=== PATIENT | male | born 1950 | race Caucasian/White ===

== ENCOUNTER 2019-01-06 11:10 | Emergency (ER) | payer OTHER, MEDICARE ==
[~2019-01-06] VITALS: Ht 160 cm; Wt 90.3 kg
[2019-01-06 11:14] VITALS: BP 145/81
--- NOTE | 2019-01-06 11:38 | NUR ---
Patient discharged in custody in stable condition. Written and verbal after care instructions given. Patient verbalizes understanding of instruction.
== END 2019-01-06 11:37 ==
LOC: ER 11:11
DX: Z02.89 Encounter for other administrative examinations (principal); I10 Essential (primary) hypertension; J44.9 Chronic obstructive pulmonary disease, unspecified; E11.9 Type 2 diabetes mellitus without complications; F43.10 Post-traumatic stress disorder, unspecified; M79.7 Fibromyalgia
CPT/HCPCS: 82962-TC

== ENCOUNTER 2023-01-25 01:56 | Inpatient (IN) | payer MEDICARE, OTHER ==
[~2023-01-25] VITALS: Ht 162.6 cm; Wt 81.6 kg
[2023-01-25] MEDS ORDERED: VANCOMYCIN 1 GM in IV D5W 250 ML IV ONE (02:30)
[2023-01-25] MEDS ORDERED: ACETAMINOPHEN 325 MG TABLET PO ONE (02:30)
[2023-01-25] MEDS ORDERED: CEFTRIAXONE 1GM BAG (ER ONLY) 50 ML IV ONE ×2 (02:30→03:04)
[2023-01-25] MEDS ORDERED: ACETAMINOPHEN 325 MG TABLET ONE (02:30)
[2023-01-25 03:16] LABS: BASOPHILS % (AUTO) 0.8 % (0.0-2.0); EOSINOPHILS # (AUTO) 0.1 K/uL (0.0-0.7); EOSINOPHILS % (AUTO) 1.2 % (0.0-6.0); HEMATOCRIT 38 % (39-51); HEMOGLOBIN 12.5 g/dL (13.5-17.5); LYMPHOCYTES % (AUTO) 16.2 % (20.0-44.0); MEAN CORPUSCULAR HEMOGLOBIN 32 PG (26.0-33.0); MEAN CORPUSCULAR HGB CONC 33 g/dl (31.0-36.0); MEAN CORPUSCULAR VOLUME 96 fL (80-96); MONOCYTES # (AUTO) 1.1 K/uL (0.1-1.30); MONOCYTES % (AUTO) 16.8 % (2.0-12.0); NEUTROPHILS # (AUTO) 4.1 K/uL (1.8-8.9); PLATELET COUNT (AUTO) 178 K/uL (150-450); RED BLOOD CELL COUNT(AUTO) 3.92 MIL/uL (4.5-6.0); RED CELL DISTRIBUTION WIDTH 13.4 % (11.5-15.0); WHITE BLOOD COUNT (AUTO) 6.3 K/uL (4.3-11.0)
[2023-01-25 03:18] LABS: APPEARANCE,URINE CLEAR (CLEAR); BILIRUBIN,URINE NEGATIVE (NEGATIVE); BLOOD, URINE NEGATIVE Ery/uL (NEGATIVE); COLOR,URINE YELLOW (YELLOW); KETONES,URINE TRACE mg/dL (NEGATIVE); LEUKOCYTE ESTERASE ,URINE NEGATIVE (NEGATIVE); NITRITE, URINE NEGATIVE (NEGATIVE); PH,URINE 5.5 (5.0-8.0); PROTEIN,URINE NEGATIVE (NEGATIVE); UGLUCOSE NEGATIVE (NEGATIVE)
[2023-01-25] MEDS ORDERED: VANCOMYCIN 1 GM /D5W 250 ML PB IV ONE (03:19)
[2023-01-25 03:26] LABS: INR 1.06 (0.91-1.10); PARTIAL THROMBOPLASTIN TIME 29.7 SEC (24.3-34.3); PROTHROMBIN TIME 11.2 SECS (9.2-11.1)
[2023-01-25 03:34] LABS: LACTIC ACID 1.1 mmol/L (0.4-2.0)
[2023-01-25 03:37] LABS: ADD URINE CULTURE NO; BACTERIA,URINE None seen /HPF (None Seen); CALCIUM OXALATE CRYSTALS,UR Moderate /HPF (None Seen); RBC,URINE NONE SEEN /HPF (0-2); SQUAMOUS EPITHELIAL CELL,UR None Seen /HPF (None Seen); WBC,URINE NONE SEEN /HPF (0-3)
[2023-01-25 03:39] LABS: CALCIUM, SERUM 9.4 mg/dL (8.5-10.1); CARBON DIOXIDE 30 mmol/L (21-32); CHLORIDE 103 mmol/L (98-107); CREATININE 1.1 mg/dL (0.6-1.3); GLUCOSE 108 mg/dL (74-106); POTASSIUM 4.6 mmol/L (3.5-5.1); SODIUM SERUM 140 mmol/L (136-145); UREA NITROGEN, BLOOD 29 mg/dL (7-18)
[2023-01-25 03:42] LABS: ALANINE AMINOTRANSFERASE 54 U/L (12-78); ALBUMIN 3.5 g/dL (3.4-5.0); ALKALINE PHOSPHATASE 87 U/L (46-116); ASPARTATE AMINOTRANSFERASE 48 U/L (15-37); BILIRUBIN,DIRECT 0.2 mg/dL (0.0-0.2); BILIRUBIN,TOTAL 0.7 mg/dL (0.2-1.0); TOTAL PROTEIN, SERUM 7.2 g/dL (6.4-8.2)
[2023-01-25 03:55] LABS: LYMPHOCYTES % (MANUAL) 12 % (16-48); MONOCYTES % (MANUAL) 17 % (0-11.0); NEUTROPHILS % (MANUAL) 71 (42-76); PLATELET ESTIMATE ADEQUATE
[2023-01-25] MEDS ORDERED: TAMS-12 PO (04:40)
[2023-01-25] MEDS ORDERED: LOSA50TA39 PO (04:40)
[2023-01-25] MEDS ORDERED: OMEP20CA15 PO (04:40)
[2023-01-25] MEDS ORDERED: ZOLP5TAB8 PO (04:40)
[2023-01-25] MEDS ORDERED: EZET10TA16 PO (04:40)
[2023-01-25] MEDS ORDERED: AMIO200T5 PO (04:40)
[2023-01-25] MEDS ORDERED: ATOR40TA PO (04:40)
[2023-01-25] MEDS ORDERED: RIVA10TA PO (04:40)
[2023-01-25] MEDS ORDERED: FURO20TA4 PO (04:40)
[2023-01-25] MEDS ORDERED: LORA10TA7 PO (04:40)
[2023-01-25] MEDS ORDERED: CHOL500062 PO (04:40)
[2023-01-25] MEDS ORDERED: Z GUARD REMEDY 4 OZ OINT TP PRN (06:00)
[2023-01-25] MEDS ORDERED: ONDANSETRON HCL/PF 4 MG/2 ML VIAL IVP PRN (06:00)
[2023-01-25] MEDS ORDERED: ACETAMINOPHEN 325 MG TABLET PO PRN (06:00)
[2023-01-25] MEDS: PANTOPRAZOLE 40 MG TABLET.DR PO SCH (07:56)
[2023-01-25 08:00] VITALS: BP 136/70; TEMP 98.6; O2SAT 94
[2023-01-25] MEDS ORDERED: VANCOMYCIN 0.75 GM in IV D5W 250 ML IV ONE (08:00)
[2023-01-25] MEDS ORDERED: ALBU18HF2 IH (08:07)
[2023-01-25] MEDS: FUROSEMIDE 20 MG TABLET PO SCH (08:35)
[2023-01-25] MEDS: EZETIMIBE 10 MG TABLET PO SCH (08:35)
[2023-01-25] MEDS: RIVAROXABAN 10 MG TABLET PO SCH (08:37)
[2023-01-25] MEDS: LORATADINE 10 MG TABLET PO SCH (08:37)
[2023-01-25] MEDS: TAMSULOSIN 0.4 MG CAP.SR.24H PO SCH (08:37)
[2023-01-25] MEDS: LOSARTAN POTASSIUM 50 MG TABLET PO SCH (08:59)
[2023-01-25] MEDS: AMIODARONE HCL 200 MG TABLET PO SCH ×2 (08:59→16:17)
[2023-01-25] MEDS: NEOMY SULF/BACITRAC ZN/POLY 15 GM TUBE TP SCH (12:06)
[2023-01-25] MEDS ORDERED: DEXTROSE 50%-WATER 50 ML DISP.SYRIN IV PRN (12:30)
[2023-01-25] MEDS: DULOXETINE HCL 30 MG CAPSULE.DR PO SCH (14:54)
[2023-01-25 16:00] VITALS: BP 137/65; TEMP 97.9; O2SAT 94
[2023-01-25] MEDS: INSULIN REGULAR, HUMAN 100 UNIT/ML 3 ML VIAL SQ PRN (16:53)
[2023-01-25] MEDS: BLOOD SUGAR DIAGNOSTIC 1 EACH STRIP VI SCH ×2 (16:53→21:10)
[2023-01-25] MEDS ORDERED: ZOLPIDEM TARTRATE 5 MG TABLET PO SCH (18:00)
[2023-01-25 20:00] VITALS: BP 148/66; TEMP 98.6; O2SAT 98
[2023-01-25] MEDS: HYDROCODONE/APAP 10/325MG TABLET PO PRN (20:48)
[2023-01-25] MEDS: ATORVASTATIN 40 MG TABLET PO SCH (21:02)
[2023-01-25] MEDS: *INSULIN REGULAR(HUMULIN R)HUM 100 UNIT/ML VIAL SQ PRN (21:10)
[2023-01-25] MEDS ORDERED: PANTOPRAZOLE 40 MG TABLET.DR PO SCH (22:00)
[2023-01-26] MEDS ORDERED: SILVER NITRATE APPLICATOR 1 EA BOX TP ONE (05:00)
[2023-01-26 05:55] LABS: BASOPHILS % (AUTO) 0.4 % (0.0-2.0); EOSINOPHILS # (AUTO) 0.1 K/uL (0.0-0.7); EOSINOPHILS % (AUTO) 1.9 % (0.0-6.0); HEMATOCRIT 36 % (39-51); HEMOGLOBIN 12.2 g/dL (13.5-17.5); LYMPHOCYTES # (AUTO) 1.3 K/uL (0.8-4.8); LYMPHOCYTES % (AUTO) 20.4 % (20.0-44.0); MEAN CORPUSCULAR HEMOGLOBIN 32 PG (26.0-33.0); MEAN CORPUSCULAR HGB CONC 34 g/dl (31.0-36.0); MEAN CORPUSCULAR VOLUME 97 fL (80-96); MONOCYTES % (AUTO) 16.3 % (2.0-12.0); NEUTROPHILS # (AUTO) 3.8 K/uL (1.8-8.9); PLATELET COUNT (AUTO) 160 K/uL (150-450); RED BLOOD CELL COUNT(AUTO) 3.76 MIL/uL (4.5-6.0); RED CELL DISTRIBUTION WIDTH 13.1 % (11.5-15.0); WHITE BLOOD COUNT (AUTO) 6.2 K/uL (4.3-11.0)
[2023-01-26 06:23] LABS: CALCIUM, SERUM 8.5 mg/dL (8.5-10.1); CREATININE 0.8 mg/dL (0.6-1.3); PHOSPHORUS 4.1 mg/dL (2.5-4.9); POTASSIUM 4.3 mmol/L (3.5-5.1)
[2023-01-26] MEDS: BLOOD SUGAR DIAGNOSTIC 1 EACH STRIP VI SCH ×4 (06:37→22:04)
[2023-01-26] MEDS: INSULIN REGULAR, HUMAN 100 UNIT/ML 3 ML VIAL SQ PRN (06:38)
[2023-01-26 07:00] VITALS: BP 123/60; TEMP 97.7; O2SAT 94
[2023-01-26] MEDS: AMIODARONE HCL 200 MG TABLET PO SCH ×2 (08:30→16:49)
[2023-01-26] MEDS: EZETIMIBE 10 MG TABLET PO SCH (08:31)
[2023-01-26] MEDS: VANCOMYCIN 1.5 GM in IV D5W 500 ML IV SCH (08:31)
[2023-01-26] MEDS: LORATADINE 10 MG TABLET PO SCH (08:32)
[2023-01-26] MEDS: PANTOPRAZOLE 40 MG TABLET.DR PO SCH (08:32)
[2023-01-26] MEDS: FUROSEMIDE 20 MG TABLET PO SCH (08:33)
[2023-01-26] MEDS: TAMSULOSIN 0.4 MG CAP.SR.24H PO SCH (08:34)
[2023-01-26] MEDS: RIVAROXABAN 10 MG TABLET PO SCH (08:35)
[2023-01-26] MEDS: NEOMY SULF/BACITRAC ZN/POLY 15 GM TUBE TP SCH (08:37)
[2023-01-26] MEDS: LOSARTAN POTASSIUM 50 MG TABLET PO SCH (08:43)
[2023-01-26] MEDS: DULOXETINE HCL 30 MG CAPSULE.DR PO SCH (12:09)
[2023-01-26 13:52] LABS: ANISOCYTOSIS 1+; BAND % (MANUAL) 2 % (0.0-5.0); EOSINOPHILS % (MANUAL) 2 % (0-4); LYMPHOCYTES % (MANUAL) 21 % (16-48); MONOCYTES % (MANUAL) 12 % (0-11.0); NEUTROPHILS % (MANUAL) 63 (42-76); OVALOCYTES 1+; PLATELET ESTIMATE ADEQUATE
[2023-01-26 16:00] VITALS: BP 125/75; TEMP 97.8; O2SAT 95
[2023-01-26] MEDS ORDERED: LIDOCAINE 1%-EPI 1:100,000 20 ML VIAL TP ONE (17:00)
[2023-01-26 20:00] VITALS: BP 164/83; TEMP 98.2; O2SAT 95
[2023-01-26] MEDS ORDERED: ZOLPIDEM TARTRATE 5 MG TABLET PO PRN (21:00)
[2023-01-26] MEDS: ATORVASTATIN 40 MG TABLET PO SCH (22:03)
[2023-01-27 06:49] LABS: BASOPHILS % (AUTO) 0.4 % (0.0-2.0); EOSINOPHILS # (AUTO) 0.1 K/uL (0.0-0.7); EOSINOPHILS % (AUTO) 1.8 % (0.0-6.0); HEMATOCRIT 37 % (39-51); HEMOGLOBIN 12.4 g/dL (13.5-17.5); LYMPHOCYTES # (AUTO) 0.9 K/uL (0.8-4.8); LYMPHOCYTES % (AUTO) 14.7 % (20.0-44.0); MEAN CORPUSCULAR HEMOGLOBIN 32 PG (26.0-33.0); MEAN CORPUSCULAR HGB CONC 33 g/dl (31.0-36.0); MEAN CORPUSCULAR VOLUME 96 fL (80-96); MONOCYTES # (AUTO) 0.9 K/uL (0.1-1.30); MONOCYTES % (AUTO) 15.2 % (2.0-12.0); NEUTROPHILS # (AUTO) 3.9 K/uL (1.8-8.9); NEUTROPHILS % (AUTO) 67.9 % (43.0-81.0); PLATELET COUNT (AUTO) 173 K/uL (150-450); RED CELL DISTRIBUTION WIDTH 13.4 % (11.5-15.0); WHITE BLOOD COUNT (AUTO) 5.8 K/uL (4.3-11.0)
[2023-01-27 06:54] LABS: CALCIUM, SERUM 8.5 mg/dL (8.5-10.1); CARBON DIOXIDE 29 mmol/L (21-32); CHLORIDE 101 mmol/L (98-107); CREATININE 0.9 mg/dL (0.6-1.3); GLUCOSE 112 mg/dL (74-106); PHOSPHORUS 3.8 mg/dL (2.5-4.9); POTASSIUM 4.1 mmol/L (3.5-5.1); SODIUM SERUM 136 mmol/L (136-145); UREA NITROGEN, BLOOD 19 mg/dL (7-18)
[2023-01-27 07:00] VITALS: BP 126/67; TEMP 98.4; O2SAT 94
[2023-01-27] MEDS: BLOOD SUGAR DIAGNOSTIC 1 EACH STRIP VI SCH ×4 (07:06→22:47)
[2023-01-27] MEDS: INSULIN REGULAR, HUMAN 100 UNIT/ML 3 ML VIAL SQ PRN ×3 (07:07→16:58)
[2023-01-27] MEDS: PANTOPRAZOLE 40 MG TABLET.DR PO SCH (07:32)
[2023-01-27] MEDS: VANCOMYCIN 1.5 GM in IV D5W 500 ML IV SCH (08:48)
[2023-01-27] MEDS: AMIODARONE HCL 200 MG TABLET PO SCH ×2 (09:00→16:58)
[2023-01-27] MEDS: FUROSEMIDE 20 MG TABLET PO SCH (09:06)
[2023-01-27] MEDS: TAMSULOSIN 0.4 MG CAP.SR.24H PO SCH (09:08)
[2023-01-27] MEDS: EZETIMIBE 10 MG TABLET PO SCH (09:08)
[2023-01-27] MEDS: LOSARTAN POTASSIUM 50 MG TABLET PO SCH (09:08)
[2023-01-27] MEDS: LORATADINE 10 MG TABLET PO SCH (09:08)
[2023-01-27] MEDS: RIVAROXABAN 10 MG TABLET PO SCH (09:09)
[2023-01-27] MEDS: NEOMY SULF/BACITRAC ZN/POLY 15 GM TUBE TP SCH (09:10)
[2023-01-27 11:57] LABS: EOSINOPHILS % (MANUAL) 2 % (0-4); LYMPHOCYTES % (MANUAL) 18 % (16-48); MONOCYTES % (MANUAL) 15 % (0-11.0); NEUTROPHILS % (MANUAL) 65 (42-76)
[2023-01-27 11:58] LABS: PLATELET ESTIMATE ADEQUATE
[2023-01-27 11:59] LABS: OVALOCYTES 1+
[2023-01-27] MEDS: DULOXETINE HCL 30 MG CAPSULE.DR PO SCH (12:34)
[2023-01-27 16:00] VITALS: BP 129/68; TEMP 98.6; O2SAT 95
[2023-01-27] MEDS ORDERED: LIDOCAINE 1%-EPI 1:200,000 SDV 10 ML VIAL IJ ONE (18:30)
[2023-01-27] MEDS ORDERED: SILVER NITRATE APPLICATOR 1 EA BOX TP ONE (18:30)
[2023-01-27] MEDS ORDERED: LIDOCAINE MPF 1%-EPI 1:200,000 30 ML VIAL IJ ONE (19:00)
[2023-01-27 20:00] VITALS: BP 150/97; TEMP 97.9; O2SAT 95
[2023-01-27] MEDS: ATORVASTATIN 40 MG TABLET PO SCH (22:47)
[2023-01-28 06:25] LABS: BASOPHILS % (AUTO) 0.6 % (0.0-2.0); EOSINOPHILS # (AUTO) 0.1 K/uL (0.0-0.7); HEMATOCRIT 37 % (39-51); HEMOGLOBIN 12.5 g/dL (13.5-17.5); LYMPHOCYTES % (AUTO) 17.5 % (20.0-44.0); MEAN CORPUSCULAR HEMOGLOBIN 33 PG (26.0-33.0); MEAN CORPUSCULAR HGB CONC 34 g/dl (31.0-36.0); MEAN CORPUSCULAR VOLUME 96 fL (80-96); MONOCYTES # (AUTO) 0.9 K/uL (0.1-1.30); MONOCYTES % (AUTO) 16.5 % (2.0-12.0); NEUTROPHILS # (AUTO) 3.6 K/uL (1.8-8.9); NEUTROPHILS % (AUTO) 63.4 % (43.0-81.0); PLATELET COUNT (AUTO) 177 K/uL (150-450); RED BLOOD CELL COUNT(AUTO) 3.85 MIL/uL (4.5-6.0); RED CELL DISTRIBUTION WIDTH 13.2 % (11.5-15.0); WHITE BLOOD COUNT (AUTO) 5.7 K/uL (4.3-11.0)
[2023-01-28 06:47] LABS: CALCIUM, SERUM 8.5 mg/dL (8.5-10.1); CARBON DIOXIDE 30 mmol/L (21-32); CHLORIDE 101 mmol/L (98-107); CREATININE 0.8 mg/dL (0.6-1.3); GLUCOSE 104 mg/dL (74-106); PHOSPHORUS 4.2 mg/dL (2.5-4.9); POTASSIUM 4.2 mmol/L (3.5-5.1); SODIUM SERUM 138 mmol/L (136-145); UREA NITROGEN, BLOOD 19 mg/dL (7-18)
[2023-01-28] MEDS: BLOOD SUGAR DIAGNOSTIC 1 EACH STRIP VI SCH ×4 (07:07→22:08)
[2023-01-28 08:00] VITALS: BP_SYST 139; BP_SYST 149; BP_DIAS 66; BP_DIAS 73; TEMP 98; TEMP 99; O2SAT 94; O2SAT 96
[2023-01-28] MEDS: VANCOMYCIN 1.5 GM in IV D5W 500 ML IV SCH (08:17)
[2023-01-28] MEDS ORDERED: LIDOCAINE 1%-EPI 1:100,000 20 ML VIAL TP PRN (09:00)
[2023-01-28] MEDS ORDERED: SILVER NITRATE APPLICATOR 1 EA BOX TP ONE (09:00)
[2023-01-28] MEDS: LORATADINE 10 MG TABLET PO SCH (09:04)
[2023-01-28] MEDS: PANTOPRAZOLE 40 MG TABLET.DR PO SCH (09:04)
[2023-01-28] MEDS: AMIODARONE HCL 200 MG TABLET PO SCH ×2 (09:05→18:49)
[2023-01-28] MEDS: TAMSULOSIN 0.4 MG CAP.SR.24H PO SCH (09:06)
[2023-01-28] MEDS: FUROSEMIDE 20 MG TABLET PO SCH (09:06)
[2023-01-28] MEDS: EZETIMIBE 10 MG TABLET PO SCH (09:06)
[2023-01-28] MEDS: RIVAROXABAN 10 MG TABLET PO SCH (09:08)
[2023-01-28] MEDS: LOSARTAN POTASSIUM 50 MG TABLET PO SCH (09:11)
[2023-01-28] MEDS: INSULIN REGULAR, HUMAN 100 UNIT/ML 3 ML VIAL SQ PRN ×2 (13:27→18:46)
[2023-01-28] MEDS: NEOMY SULF/BACITRAC ZN/POLY 15 GM TUBE TP SCH (14:17)
[2023-01-28] MEDS: DULOXETINE HCL 30 MG CAPSULE.DR PO SCH (14:18)
[2023-01-28 16:00] VITALS: BP 139/57; TEMP 98.4; O2SAT 96
[2023-01-28 19:00] VITALS: BP 147/61; TEMP 98.9; O2SAT 97
[2023-01-28] MEDS: ATORVASTATIN 40 MG TABLET PO SCH (22:08)
[2023-01-28] MEDS: *INSULIN REGULAR(HUMULIN R)HUM 100 UNIT/ML VIAL SQ PRN (22:55)
[2023-01-29] MEDS: HYDROCODONE/APAP 10/325MG TABLET PO PRN (00:06)
[2023-01-29 05:49] LABS: BASOPHILS % (AUTO) 0.5 % (0.0-2.0); EOSINOPHILS # (AUTO) 0.1 K/uL (0.0-0.7); EOSINOPHILS % (AUTO) 1.9 % (0.0-6.0); HEMATOCRIT 36 % (39-51); HEMOGLOBIN 11.9 g/dL (13.5-17.5); LYMPHOCYTES # (AUTO) 1.2 K/uL (0.8-4.8); LYMPHOCYTES % (AUTO) 19.2 % (20.0-44.0); MEAN CORPUSCULAR HEMOGLOBIN 32 PG (26.0-33.0); MEAN CORPUSCULAR HGB CONC 33 g/dl (31.0-36.0); MEAN CORPUSCULAR VOLUME 96 fL (80-96); MONOCYTES # (AUTO) 0.9 K/uL (0.1-1.30); MONOCYTES % (AUTO) 14.7 % (2.0-12.0); NEUTROPHILS # (AUTO) 3.9 K/uL (1.8-8.9); NEUTROPHILS % (AUTO) 63.7 % (43.0-81.0); PLATELET COUNT (AUTO) 174 K/uL (150-450); RED BLOOD CELL COUNT(AUTO) 3.73 MIL/uL (4.5-6.0); WHITE BLOOD COUNT (AUTO) 6.2 K/uL (4.3-11.0)
[2023-01-29 06:19] LABS: CALCIUM, SERUM 8.4 mg/dL (8.5-10.1); CREATININE 0.8 mg/dL (0.6-1.3); PHOSPHORUS 4.2 mg/dL (2.5-4.9); POTASSIUM 4.2 mmol/L (3.5-5.1)
[2023-01-29] MEDS: BLOOD SUGAR DIAGNOSTIC 1 EACH STRIP VI SCH ×3 (07:18→16:58)
[2023-01-29] MEDS: INSULIN REGULAR, HUMAN 100 UNIT/ML 3 ML VIAL SQ PRN ×2 (07:19→12:17)
[2023-01-29] MEDS: PANTOPRAZOLE 40 MG TABLET.DR PO SCH (07:50)
[2023-01-29 08:00] VITALS: BP 123/63; TEMP 97.9; O2SAT 96
[2023-01-29] MEDS: VANCOMYCIN 1.5 GM in IV D5W 500 ML IV SCH (08:02)
[2023-01-29] MEDS: FUROSEMIDE 20 MG TABLET PO SCH (09:58)
[2023-01-29] MEDS: AMIODARONE HCL 200 MG TABLET PO SCH ×2 (09:58→16:58)
[2023-01-29] MEDS: LOSARTAN POTASSIUM 50 MG TABLET PO SCH (09:59)
[2023-01-29] MEDS: LORATADINE 10 MG TABLET PO SCH (09:59)
[2023-01-29] MEDS: EZETIMIBE 10 MG TABLET PO SCH (09:59)
[2023-01-29] MEDS: TAMSULOSIN 0.4 MG CAP.SR.24H PO SCH (10:00)
[2023-01-29] MEDS: RIVAROXABAN 10 MG TABLET PO SCH (10:01)
[2023-01-29] MEDS: NEOMY SULF/BACITRAC ZN/POLY 15 GM TUBE TP SCH (10:05)
[2023-01-29] MEDS: DULOXETINE HCL 30 MG CAPSULE.DR PO SCH (12:41)
[2023-01-29] MEDS ORDERED: Neomy Sulf/Bacitrac Zn/Poly TP (13:54)
[2023-01-29] MEDS ORDERED: DULO30CA2 PO (13:54)
[2023-01-29] MEDS ORDERED: SULF1TAB48 PO (13:54)
[2023-01-29 16:58] VITALS: BP 122/75
[2023-01-29] MEDS: *INSULIN REGULAR(HUMULIN R)HUM 100 UNIT/ML VIAL SQ PRN (16:59)
== END 2023-01-29 19:40 | DRG 571 ==
LOC: ER 02:01 → MED 04:03
PROVIDERS: ADMIT Student in an Organized Health Care Education/Training Program; ATTEND Student in an Organized Health Care Education/Training Program
PROC: 0JBN0ZZ Excision of Right Lower Leg Subcutaneous Tissue and Fascia, Open Approach (ICD-10-PCS; principal; 2023-01-26)
DX: L03.115 Cellulitis of right lower limb (principal); F33.9 Major depressive disorder, recurrent, unspecified; I10 Essential (primary) hypertension; J44.9 Chronic obstructive pulmonary disease, unspecified; M79.7 Fibromyalgia; E11.9 Type 2 diabetes mellitus without complications; F43.10 Post-traumatic stress disorder, unspecified; R42 Dizziness and giddiness; Z79.51 Long term (current) use of inhaled steroids; Z79.899 Other long term (current) drug therapy; Z79.01 Long term (current) use of anticoagulants; W19.XXXA Unspecified fall, initial encounter; Y92.9 Unspecified place or not applicable; D64.9 Anemia, unspecified
CPT/HCPCS: 36415; 73564-TC; 80048-TC; 80061-TC; 80076-TC; 80202-TC; 81001; 82962-TC; 83605-TC; 83735-TC; 84100-TC; 85025-TC; 85652-TC; 85730-TC; 86140-TC; 87040-TC; 87081-TC; 87086-TC; 97112-TC; 97116-TC; 97530-TC; A4223; A6403; G0378; J0696; J1815; J3370; J3490; J7040; J7060